=== PATIENT | female | born 1940 | race Caucasian/White ===

== ENCOUNTER → 2021-03-20 | Outpatient (CLI) | payer MEDICARE | LOC: RAD 13:00 → VAS 13:03 | DX: I48.0 Paroxysmal atrial fibrillation (principal) ==

== ENCOUNTER → 2021-06-06 | Outpatient (CLI) | payer MEDICARE | LOC: RAD 14:45 | DX: K80.20 Calculus of gallbladder without cholecystitis without obstruction (principal); K57.30 Diverticulosis of large intestine without perforation or abscess without bleeding ==

== ENCOUNTER 2021-08-03 12:00 | Emergency (ER) | payer MEDICARE ==
[~2021-08-03] VITALS: Ht 162.6 cm; Wt 40.9 kg
[2021-08-03] MEDS ORDERED: OMEPRAZOLE40 MG PO (12:57)
[2021-08-03] MEDS ORDERED: AMIODARONE200 MG PO (12:57)
[2021-08-03] MEDS ORDERED: ZOFRAN ODT4 MG PO (12:57)
[2021-08-03] MEDS ORDERED: ELIQUIS2.5 MG PO (12:58)
[2021-08-03 13:26] LABS: BASO # 0.01 K/mm3 (0.02-0.10); HEMATOCRIT 42.8 % (37.0-47.0); HEMOGLOBIN 14.6 g/dL (12.5-16.0); LYMPH# 0.72 K/mm3 (1.50-4.00); MEAN CELL VOLUME 91 fl (78-100); MEAN CORPUSCULAR HEMOGLOBIN 31 pg (27-31); MEAN CORPUSCULAR HGB CONC 34 g/dL (33-37); MEAN PLATELET VOLUME 10.9 fl (7.4-10.4); MONO # 0.43 K/mm3 (0.20-0.80); NEU # 9.38 K/mm3 (1.40-6.50); PLATELET COUNT 222 K/mm3 (130-400); RED BLOOD COUNT 4.72 M/mm3 (4.10-5.30); RED CELL DISTRIBUTION WIDTH 13.8 % (11.5-14.5); WHITE BLOOD COUNT 10.6 K/mm3 (4.8-10.8)
[2021-08-03 13:40] LABS: ALBUMIN 4.2 g/dL (3.4-4.8); POTASSIUM 5.3 mmol/L (3.5-5.1)
[2021-08-03 13:41] LABS: CALCIUM 9.4 mg/dL (8.3-10.5)
[2021-08-03 13:42] LABS: TOTAL PROTEIN 8.6 g/dL (6.2-8.1)
[2021-08-03 13:44] LABS: TOTAL BILIRUBIN 1.1 mg/dL (0.2-1.2)
[2021-08-03 13:49] LABS: MAGNESIUM 2.88 mg/dL (1.60-2.60)
[2021-08-03 13:53] LABS: PROTHROMBIN TIME 10.8 SECONDS (9.0-12.0)
[2021-08-03 13:57] LABS: TROPONIN-I 0.101 ng/mL (<0.030)
[2021-08-03 16:49] LABS: POTASSIUM 4.1 mmol/L (3.5-5.1)
[2021-08-03 16:50] LABS: CALCIUM 7.8 mg/dL (8.3-10.5)
[2021-08-03 17:47] LABS: URINE APPEARANCE HAZY; URINE COLOR DARK YELLOW; URINE GLUCOSE NEGATIVE (NEGATIVE); URINE PROTEIN(semi-quant) TRACE (NEGATIVE)
[2021-08-03 17:48] LABS: URINE BILIRUBIN NEGATIVE (NEGATIVE); URINE BLOOD NEGATIVE (NEGATIVE); URINE KETONE NEGATIVE (NEGATIVE); URINE LEUKOCYTE ESTERASE NEGATIVE (NEGATIVE); URINE NITRATE NEGATIVE (NEGATIVE); URINE UROBILINOGEN NORMAL (NORMAL)
[2021-08-03 17:51] VITALS: BP 108/64
== END 2021-08-03 17:51 | disposition short-term general hospital (02) ==
LOC: ED 12:00
PROVIDERS: Physician Assistant
DX: K76.9 Liver disease, unspecified (principal); N17.9 Acute kidney failure, unspecified; E87.1 Hypo-osmolality and hyponatremia; E87.5 Hyperkalemia; E86.0 Dehydration; R77.8 Other specified abnormalities of plasma proteins; I44.7 Left bundle-branch block, unspecified; I48.91 Unspecified atrial fibrillation; Z90.49 Acquired absence of other specified parts of digestive tract; Z20.822 Contact with and (suspected) exposure to COVID-19; Z79.01 Long term (current) use of anticoagulants
CPT/HCPCS: C9113; J7030

== ENCOUNTER 2021-08-25 09:21 | Emergency (ER) | payer MEDICARE ==
[~2021-08-25 09:21] MED LIST: AMIODARONE200 MG PO; ELIQUIS2.5 MG PO; OMEPRAZOLE40 MG PO; ZOFRAN ODT4 MG PO
[2021-08-25 10:14] LABS: BASO # 0.04 K/mm3 (0.02-0.10); EOS # 0.07 K/mm3 (0.04-0.40); EOS % 1.5 % (1.0-5.0); HEMATOCRIT 30.4 % (37.0-47.0); HEMOGLOBIN 9.5 g/dL (12.5-16.0); LYMPH# 0.87 K/mm3 (1.50-4.00); MEAN CELL VOLUME 99 fl (78-100); MEAN CORPUSCULAR HEMOGLOBIN 31 pg (27-31); MEAN CORPUSCULAR HGB CONC 31 g/dL (33-37); MEAN PLATELET VOLUME 10.4 fl (7.4-10.4); MONO # 0.33 K/mm3 (0.20-0.80); NEU # 3.26 K/mm3 (1.40-6.50); PLATELET COUNT 195 K/mm3 (130-400); RED BLOOD COUNT 3.06 M/mm3 (4.10-5.30); RED CELL DISTRIBUTION WIDTH 15.6 % (11.5-14.5); WHITE BLOOD COUNT 4.6 K/mm3 (4.8-10.8)
[2021-08-25 10:28] LABS: ALBUMIN 3.3 g/dL (3.4-4.8); POTASSIUM 3.9 mmol/L (3.5-5.1)
[2021-08-25 10:29] LABS: CALCIUM 8.2 mg/dL (8.3-10.5)
[2021-08-25 10:30] LABS: LIPASE < 4 U/L (8-78); TOTAL PROTEIN 5.9 g/dL (6.2-8.1)
[2021-08-25 10:32] LABS: TOTAL BILIRUBIN 0.7 mg/dL (0.2-1.2)
[2021-08-25 12:34] LABS: URINE APPEARANCE CLEAR; URINE BILIRUBIN NEGATIVE (NEGATIVE); URINE BLOOD NEGATIVE (NEGATIVE); URINE COLOR YELLOW; URINE GLUCOSE NEGATIVE (NEGATIVE); URINE KETONE 1+ (NEGATIVE); URINE LEUKOCYTE ESTERASE NEGATIVE (NEGATIVE); URINE NITRATE NEGATIVE (NEGATIVE); URINE PROTEIN(semi-quant) TRACE (NEGATIVE); URINE UROBILINOGEN NORMAL (NORMAL)
[2021-08-25 12:35] LABS: URINE MUCUS PRESENT (NOT PRESENT)
[2021-08-25 14:51] VITALS: BP 128/72
== END 2021-08-25 14:58 | disposition short-term general hospital (02) ==
LOC: ED 09:21
PROVIDERS: Nurse Practitioner
DX: R18.8 Other ascites (principal); K92.1 Melena; R10.13 Epigastric pain; Z20.822 Contact with and (suspected) exposure to COVID-19; Z90.49 Acquired absence of other specified parts of digestive tract
CPT/HCPCS: C9113; J7050; Q9967